=== PATIENT | male | born 1980 | race Caucasian/White ===

== ENCOUNTER 2021-05-22 10:25 | Emergency (ER) | payer BC, MEDICAID ==
[~2021-05-22] VITALS: Ht 180.3 cm; Wt 116.0 kg
[~2021-05-22 10:25] MED LIST: HYDR1TAB PO; LIDOcaine 1% W/epiNEPHrine 1:100,000 20ml vial ONE; ZOF4T PO; [UNRECOGNIZED DRUG - CODE] PO
[2021-05-22 10:44] VITALS: BP 145/84
[2021-05-22] MEDS ORDERED: MUPI22OI30 TOP (12:03)
== END 2021-05-22 12:22 | disposition home or self-care (01) ==
LOC: ER 10:26
DX: S90.852A Superficial foreign body, left foot, initial encounter (principal); M79.672 Pain in left foot; Z79.2 Long term (current) use of antibiotics; Z79.899 Other long term (current) drug therapy; W50.0XXA Accidental hit or strike by another person, initial encounter; Y93.89 Activity, other specified; Y92.89 Other specified places as the place of occurrence of the external cause; Y99.8 Other external cause status
CPT/HCPCS: 10120; 99284; 99285